=== PATIENT | female | born 1935 | race Caucasian/White ===

== ENCOUNTER 2020-05-26 16:37 | Emergency (ER) | payer MEDICARE, OTHER ==
[~2020-05-26] VITALS: Ht 152.4 cm; Wt 63.5 kg
[2020-05-26] MEDS ORDERED: VENTOLIN HFA INH8 GM INH (16:53)
[2020-05-26] MEDS ORDERED: CELEXA 20 MG TA20 MG PO (16:53)
[2020-05-26] MEDS ORDERED: TOPROL XL25 MG PO (16:53)
[2020-05-26] MEDS ORDERED: ASA81BEC PO (16:53)
[2020-05-26] MEDS ORDERED: LISINOPRIL20 MG PO (16:53)
[2020-05-26] MEDS ORDERED: CALCIUM-MAGNES1 EAC6 PO (16:54)
[2020-05-26] MEDS ORDERED: WOMEN'S DAILY1 EACH PO (16:54)
[2020-05-26 18:03] VITALS: BP 148/72
== END 2020-05-26 18:04 | disposition home or self-care (01) ==
LOC: M.ERS 16:37
DX: Z20.828 Contact with and (suspected) exposure to other viral communicable diseases (principal); J45.909 Unspecified asthma, uncomplicated; I50.9 Heart failure, unspecified; Z88.8 Allergy status to other drugs, medicaments and biological substances; Z88.5 Allergy status to narcotic agent

== ENCOUNTER 2021-04-16 16:35 | Emergency (ER) | payer MEDICARE, OTHER ==
[~2021-04-16] VITALS: Ht 152.4 cm; Wt 67.1 kg
[~2021-04-16 16:35] MED LIST: ASA81BEC PO; CALCIUM-MAGNES1 EAC6 PO; CELEXA 20 MG TA20 MG PO; LISINOPRIL20 MG PO; TOPROL XL25 MG PO; VENTOLIN HFA INH8 GM INH; WOMEN'S DAILY1 EACH PO
[2021-04-16 17:15] LABS: ABSOLUTE BASOPHILS 0.1 thou/uL (0.0-0.2); ABSOLUTE EOSINOPHILS 0.2 thou/uL (0.0-0.7); ABSOLUTE LYMPHOCYTES 1.6 thou/uL (0.8-5.3); ABSOLUTE MONOCYTES 1.1 thou/uL (0.0-1.2); ABSOLUTE NEUTROPHILS 4.9 thou/uL (1.6-8.1); BASOPHILS 0.6 %; EOSINOPHILS 2.1 %; HEMOGLOBIN 13.4 gm/dL (12.0-15.0); LYMPHOCYTES 20.7 %; MCH 32.4 pg (26.0-34.0); MCHC 33.5 g/dL (28.0-37.0); MCV 96.5 fL (80.0-100.0); MONOCYTES 14.2 %; MPV 7.9 fl. (7.2-11.1); NUCLEATED RBCS 0 /100WBC; PLATELET COUNT* 191 thou/uL (150-400); POLYS 62.4 %; RBC 4.15 mil/uL (4.20-5.00); RDW-CV 12.7 % (10.5-14.5); WBC 7.8 thou/uL (4.0-11.0)
[2021-04-16 17:25] LABS: CALCIUM 9.6 mg/dL (8.5-10.1); POTASSIUM 3.8 mmol/L (3.5-5.1)
[2021-04-16 17:39] LABS: ALBUMIN 3.2 g/dL (3.4-5.0); TOTAL BILIRUBIN 0.6 mg/dL (<0.1-1.0); TOTAL PROTEIN 7.5 g/dL (6.4-8.2)
[2021-04-16] MEDS ORDERED: AUGMENTIN 875-1 EACH PO (18:12)
[2021-04-16 18:20] VITALS: BP 152/78
--- NOTE | 2021-04-17 08:37 | EKG ---
[place] [address] ELECTROCARDIOGRAM REPORT Name: OSEI KAISER Room: [facility]#: [id number] Admission: 04/16/21 Attend Phys: Discharge: 04/16/21 Date of : 35 Date of Service: 04/16/211655 Report #: [id number] THIS REPORT FOR: //name// [facility] ED Test Date: 2021-04-16 Test Time: 16:56:16 Pat Name: OSEI KAISER Department: Room: Gender: Procurement Analyst: : 1935 Requested By: Shailesh Garner Order Number: [id number] MD: Arie Fierro Measurements Intervals [place] Rate: 102 P: 9 SD: 148 QRS: 264 QRSD: 113 T: 66 QT: 376 QTc: 490 Interpretive Statements Atrial-sensed ventricular-paced complexes No further analysis attempted due to paced rhythm No previous ECG available for comparison Electronically Signed On 04-17-2021 8:37:44 CDT by Arie Fierro [email or web address] <ELECTRONICALLY SIGNED> By: Arie Fierro MD, [facility] 04/17/21 0837 [id number] 1656 Arie Fierro MD, [facility] /EPI
== END 2021-04-16 18:20 | disposition home or self-care (01) ==
LOC: M.ERS 16:35
PROVIDERS: Emergency Medicine Emergency Medical Services
DX: J18.9 Pneumonia, unspecified organism (principal); Z20.822 Contact with and (suspected) exposure to COVID-19; R11.2 Nausea with vomiting, unspecified; I11.0 Hypertensive heart disease with heart failure; I50.9 Heart failure, unspecified; J45.909 Unspecified asthma, uncomplicated; Z95.0 Presence of cardiac pacemaker; Z79.899 Other long term (current) drug therapy; Z79.82 Long term (current) use of aspirin; Z88.5 Allergy status to narcotic agent; Z88.8 Allergy status to other drugs, medicaments and biological substances